=== PATIENT | male | born 1995 | race Caucasian/White ===

== ENCOUNTER 2017-02-24 20:23 | Emergency (ER) | payer SELFPAY ==
[~2017-02-24] VITALS: Ht 182.9 cm; Wt 140.9 kg
[2017-02-24 20:36] VITALS: BP 138/87; PULSE 100; RESP 20; O2SAT 99
--- NOTE | 2017-02-24 21:59 | ED.REPORT ---
HPI-Rash / Abscess Date of Service Feb 24, 2017 ED Provider: Dr. Newsome Pt is a 22 year old male presenting to the ED complaining of redness and swelling to his groin left greater than right onset 3 days ago. He denies any pain, breaks in the skin, or any other symptoms at this time. Nursing Notes Stated Complaint: RED ORANTES ON BILAT LEGS, SWELLING ON LEFT LEG Chief Complaint: Skin Rash/Abscess Nursing Notes Reviewed: Yes Allergies: Coded Allergies: No Known Allergies (Unverified , 02/24/17) General Time Seen by MD: 21:58 Chief Complaint Red area Hx Obtained From: Patient Arrived By: Walk-in Onset Occurred: 3 days ago Symptom Duration: Since onset Location: : Inguinal Severity: Current: No pain currently Severity: Maximum: No pain Recent Healthcare: No recent doctor visit, No recent hospitalization Similar Sx Previous: No Past Medical History Past Medical History denies Past Surgical History denies Smoking History Current Every Day Smoker Ambulatory Status Independent Review of Systems Constitutional: Denies: Fever, Weakness - generalized Respiratory: Denies: Shortness of breath Cardiovascular: Denies: Chest pain GI: Denies: Abdominal pain Skin: Reports Rash, Reports Swelling Complete sys rev & neg: except as marked. Physical Exam Initial Vital Signs Vital Signs (First) Date Time Temp Pulse Resp B/P Pulse Ox O2 Delivery O2 Flow Rate FiO2 02/24/17 20:36 36.9 100 20 138/87 99 Room Air Initial VS: Reviewed, Vital signs abnormal Head / Eyes: Atraumatic, Normocephalic, PERRL ENT: Mucous membranes moist, Conjunctiva normal, No scleral icterus Neck: Supple, Non-tender, Full range of motion Respiratory: No respiratory distress Abdomen / GI: No distention Extremities: Vascular intact, Neuro intact, No swelling, No tenderness Neurologic: Alert, Oriented, Nonfocal Psychiatric: Mood/affect normal, Behavior normal, Normal thought content General/Constitutional: Awake, Alert, No acute distress Skin: Warm, Dry Bilateral upper medial thigh erythema, swelling, and mild tenderness. Leading edge on left was marked. No significant tinea cruris. No skin breakdown. Re-Eval/Medical Decision Med Decision/Clinical Course Minor cellulitis bilateral proximal medial thigh, worse on the left than the right. Source is uncertain. There does not appear to be any involvement of the groin per se. There are no open areas. Empiric treatment with trimethoprim sulfamethoxazole DS. All up with his primary doctor. Re-Evaluation/Progress : Time of Eval: 22:05 Patient Status: Condition improved Re-Evaluation/Progress Note: Discussed plan for discharge. Pt understands and agrees. Counseled Regarding: Diagnosis, Lab results, Need for follow-up, When/why to return to ED Discharge & Departure Impression: Primary Impression: Cellulitis Site of cellulitis: extremity Site of cellulitis of extremity: lower extremity Laterality: unspecified laterality Qualified Code: L03.119 - Cellulitis of unspecified part of limb Disposition: Home Discharge Condition All VS Reviewed: Yes Condition: Improved Patient Instructions: Cellulitis (ED) Additional Instructions: You have an infection of the skin of the thigh called cellulitis. The underlying cause is uncertain. Trimethoprim sulfamethoxazole DS, one pill twice daily for 10 days, #20 dispensed. Stop the amoxicillin antibiotic. The infection may spread a little bit for the first 24 hours but then it should start to recede. I have marked the edges of the redness to help you see whether it is getting better or not. Follow-up with your regular doctor or return to the emergency room if it is worsening by 48 hours. Referrals: [facility] Attestation Portions of this note were transcribed by Dodie Yates. I, Dr. Newsome personally performed the history, physical exam and medical decision-making; I reviewed and confirmed the accuracy of the information in the transcribed note. Signed by: Mukul Abdullahi, 02/24/2017 at 2220. copies to: [facility] Chi Newsome MD Feb 24, 2017 21:59 DODIE YATES Feb 24, 2017 22:06
[2017-02-25] MEDS ORDERED: _Trimethoprim-Sulfa 160/800 mg Tablet PO SCH (08:30)
== END 2017-02-24 22:43 | disposition home or self-care (01) ==
LOC: SED 20:23
DX: L03.115 Cellulitis of right lower limb (principal); L03.116 Cellulitis of left lower limb; F17.200 Nicotine dependence, unspecified, uncomplicated